=== PATIENT | female | born 1990 ===

== ENCOUNTER 2021-10-13 10:57 | Emergency (ER) | payer OTHER ==
[~2021-10-13] VITALS: Ht 160 cm; Wt 93.0 kg
[2021-10-13 14:33] VITALS: BP 135/95
[2021-10-13] MEDS ORDERED: PRED20TA2 PO (15:47)
== END 2021-10-13 16:05 | disposition home or self-care (01) ==
LOC: ER 10:57
DX: G43.909 Migraine, unspecified, not intractable, without status migrainosus (principal); F17.210 Nicotine dependence, cigarettes, uncomplicated; Z90.49 Acquired absence of other specified parts of digestive tract
CPT/HCPCS: 70450; 81002; 81025

== ENCOUNTER 2023-01-07 22:02 | Emergency (ER) | payer OTHER ==
[~2023-01-07] VITALS: Ht 160 cm; Wt 47.7 kg
[~2023-01-07 22:02] MED LIST: PRED20TA2 PO
[2023-01-07] MEDS ORDERED: IPRATROPIUM BROM 0.5 MG/2.5ML INH SOL NEB ONE (22:15)
[2023-01-07] MEDS ORDERED: ALBUTEROL SULF 2.5 MG/0.5ML(0.5%) NEB SOLN NEB ONE (22:15)
[2023-01-08] MEDS ORDERED: DexAMETHasone SOD PHOS 10MG/1ML VIAL INJ IM ONE (00:45)
[2023-01-08] MEDS ORDERED: ALBU108A5 IN (00:53)
[2023-01-08 01:47] VITALS: BP 148/91
[2023-01-08] MEDS ORDERED: ALBUAER3 IN (01:58)
== END 2023-01-08 02:06 | disposition home or self-care (01) ==
LOC: ER 22:02
DX: J45.901 Unspecified asthma with (acute) exacerbation (principal); F17.210 Nicotine dependence, cigarettes, uncomplicated; F12.10 Cannabis abuse, uncomplicated; Z90.49 Acquired absence of other specified parts of digestive tract
CPT/HCPCS: 94640; 96372; 99283; J1100; J7644